=== PATIENT | male | born 1985 | race Asian ===

== ENCOUNTER 2017-04-18 09:36 | Emergency (ER) | payer MEDICAID ==
[~2017-04-18] VITALS: Ht 167.6 cm; Wt 74.7 kg
[~2017-04-18 09:36] MED LIST: D ME PO
[2017-04-18 09:39] VITALS: BP 111/71
[2017-04-18] MEDS ORDERED: IBUPROFEN 200 MG TABLET ONE (10:44)
[2017-04-18] MEDS ORDERED: IBUPROFEN 200 MG TABLET PO ONE (11:00)
== END 2017-04-18 11:22 | disposition home or self-care (01) ==
LOC: ED 11:16
DX: M77.8 Other enthesopathies, not elsewhere classified (principal)
CPT/HCPCS: 29125

== ENCOUNTER 2018-05-26 18:13 | Emergency (ER) | payer MEDICAID ==
[~2018-05-26] VITALS: Ht 167.6 cm; Wt 75.9 kg
[2018-05-26 18:21] VITALS: BP 117/79
== END 2018-05-26 19:36 | disposition home or self-care (01) ==
LOC: ED 19:30
DX: L02.811 Cutaneous abscess of head [any part, except face] (principal)
CPT/HCPCS: 99283

== ENCOUNTER 2019-09-26 15:50 | Emergency (ER) | payer MEDICAID ==
[~2019-09-26] VITALS: Ht 167.6 cm; Wt 76.8 kg
[2019-09-26 16:31] LABS: RAPID INFLUENZA A Negative (Negative); RAPID INFLUENZA B POSITIVE (Negative)
[2019-09-26 18:15] LABS: BASOPHILS # (AUTO) 0.02 x10^3/uL (0-0.1); BASOPHILS % (AUTO) 0 % (0-1); EOSINOPHILS # (AUTO) 0.05 x10^3/uL (0-0.4); EOSINOPHILS % (AUTO) 0 % (1-7); LYMPHOCYTES # (AUTO) 1.75 x10^3/uL (1-3.4); LYMPHOCYTES % (AUTO) 17 % (22-44); MD NO; MEAN CORPUSCULAR HGB CONC 32.1 g/dL (33.2-36.2); MEAN CORPUSCULAR VOLUME 78.1 fL (81-97); MONOCYTES % (AUTO) 13 % (2-9); NEUTROPHILS # (AUTO) 7.29 x10^3/uL (1.8-6.8); NEUTROPHILS % (AUTO) 70 % (42-75); PLATELET COUNT 221 x10^3/uL (130-400); RED BLOOD COUNT 5.58 x10^6/uL (4.38-5.82); RED CELL DISTRIBUTION WIDTH 13.3 % (9.4-14.8)
[2019-09-26 18:21] LABS: ALBUMIN 4.4 g/dL (3.4-5.0); ANION GAP 7 mmol/L (5-15); CALCIUM 8.7 mg/dL (8.5-10.1); CHLORIDE 102 mmol/L (98-107); CREATININE 1.14 mg/dL (0.7-1.3)
[2019-09-26] MEDS ORDERED: KETOROLAC 30 MG/1 ML ONE (18:29)
[2019-09-26] MEDS ORDERED: KETOROLAC 30 MG/1 ML IM ONE (18:30)
[2019-09-26] MEDS ORDERED: ACETAMINOPHEN 500 MG TABLET ONE (18:41)
[2019-09-26] MEDS ORDERED: SODIUM CHLORIDE FLUSH 10ML SYR IVF ONE (19:00)
[2019-09-26] MEDS ORDERED: ACETAMINOPHEN 500 MG TABLET PO ONE (19:00)
[2019-09-26] MEDS ORDERED: SODIUM CHLORIDE 0.9% 1,000ML IVBOLUS ONE (19:00)
[2019-09-26 19:32] VITALS: BP 98/59
== END 2019-09-26 19:50 | disposition home or self-care (01) ==
LOC: ED 19:25
DX: J10.1 Influenza due to other identified influenza virus with other respiratory manifestations (principal); M79.10 Myalgia, unspecified site; R42 Dizziness and giddiness; R51 Headache; E78.00 Pure hypercholesterolemia, unspecified
CPT/HCPCS: 36415; 71045; 80048; 82040; 85025; 87400; 96372; 99284; J1885; J7030

== ENCOUNTER 2019-12-11 09:45 | Emergency (ER) | payer MEDICAID ==
[~2019-12-11] VITALS: Ht 167.6 cm; Wt 77.0 kg
[2019-12-11 10:02] VITALS: BP 117/73
--- NOTE | 2019-12-11 10:14 | NUR ---
PT HERE WITH C/O NOSE PAIN, POSS. INFECTED PIMPLE. PT STATES HE TRIED TO POP IT AND GOT SOME PUSS BUT STATES THERE IS MORE IN IT.
--- NOTE | 2019-12-11 10:49 | NUR ---
Patient/Caregiver given discharge instructions and they have confirmed that they understand the instructions. Patient ambulatory with steady gait.
== END 2019-12-11 10:53 | disposition home or self-care (01) ==
LOC: ED 10:46
DX: L01.01 Non-bullous impetigo (principal)
CPT/HCPCS: 99283

== ENCOUNTER → 2020-06-27 | Outpatient (CLI) | payer MEDICAID | END | disposition home or self-care (01) | LOC: STAR 11:36 | PROVIDERS: ATTEND Anesthesiology | DX: Z20.828 Contact with and (suspected) exposure to other viral communicable diseases (principal) | CPT/HCPCS: 36415; 87635 ==

== ENCOUNTER 2020-07-02 07:44 | Day surgery (SDC) | payer MEDICAID ==
[~2020-07-02] VITALS: Ht 167.6 cm; Wt 77.7 kg
[2020-07-02] MEDS ORDERED: OXYcodone 5 MG/5 ML ORAL.SOL UDC PO PRN (08:00)
[2020-07-02] MEDS ORDERED: METOCLOPRAMIDE 5 MG/ML, 2ML IVPush PRN (08:00)
[2020-07-02] MEDS ORDERED: EPHEDRINE 50 MG/ML, 1ML IM PRN (08:00)
[2020-07-02] MEDS ORDERED: DIAZEPAM 5 MG/ML, 2ML IVPush PRN (08:00)
[2020-07-02] MEDS ORDERED: ONDANSETRON 2MG/ML, 2ML IVPush PRN (08:00)
[2020-07-02] MEDS ORDERED: EPHEDRINE 50 MG/ML, 1ML IVPush PRN (08:00)
[2020-07-02] MEDS ORDERED: METHOCARBAMOL 1,000 MG in DEXTROSE 5% 100 ML IV PRN (08:00)
[2020-07-02] MEDS ORDERED: LABETALOL 5MG/ML, 20ML IV PRN (08:00)
[2020-07-02] MEDS ORDERED: MIDAZOLAM 1 MG/ML, 2ML IV PRN (08:00)
[2020-07-02] MEDS ORDERED: KETOROLAC 30 MG/1 ML IVPush PRN (08:00)
[2020-07-02] MEDS ORDERED: HALOPERIDOL 5 MG/ML IV PRN (08:00)
[2020-07-02] MEDS ORDERED: MEPERIDINE/PF 25MG/0.5ML IVPush PRN (08:00)
[2020-07-02] MEDS ORDERED: HYDROmorphone 1 MG/ML, 1ML INJ IVPush PRN (08:00)
[2020-07-02] MEDS ORDERED: hydrALAzine 20 MG/ML, 1ML IV PRN (08:00)
[2020-07-02] MEDS ORDERED: ALBUTEROL/IPRATROPIUM 2.5MG/0.5MG, 3 ML NPPB PRN (08:00)
[2020-07-02] MEDS ORDERED: LORazepam 2 MG/ML, 1ML IVPush PRN (08:00)
[2020-07-02] MEDS ORDERED: HYDROcodone/APAP 7.5-325MG/15ML UDC PO PRN (08:00)
[2020-07-02] MEDS ORDERED: ACETAMINOPHEN 325 MG TABLET PO PRN (08:00)
[2020-07-02] MEDS ORDERED: DIPHENHYDRAMINE 50 MG/ML, 1ML IVPush PRN (08:00)
[2020-07-02] MEDS ORDERED: FENTANYL PF 100 MCG/2ML IV PRN (08:00)
[2020-07-02] MEDS ORDERED: FENTANYL PF 100 MCG/2ML ONE ×2 (08:09→08:10)
[2020-07-02] MEDS ORDERED: ROCURONIUM 10MG/ML,5ML ONE (08:09)
[2020-07-02] MEDS ORDERED: LIDOCAINE-MPF 2% ,5ML ONE (08:09)
[2020-07-02] MEDS ORDERED: PROPOFOL 10 MG/ML, 20ML ONE (08:09)
[2020-07-02] MEDS ORDERED: GLYCOPYRROLATE 0.2MG/1ML, 5ML ONE (08:09)
[2020-07-02] MEDS ORDERED: DEXAMETHASONE 4 MG/ML, 1ML ONE (08:09)
[2020-07-02] MEDS ORDERED: MIDAZOLAM 1 MG/ML, 2ML ONE (08:09)
[2020-07-02] MEDS ORDERED: LACTATED RINGERS 1,000 ML IV SCH (08:42)
[2020-07-02] MEDS ORDERED: NONE PER PT (08:48)
[2020-07-02 08:53] VITALS: BP 119/80
[2020-07-02] MEDS ORDERED: CHLORHEXIDINE 15 ML UDC MM ONE (09:00)
[2020-07-02] MEDS ORDERED: CEFAZOLIN 1,000 MG ONE (13:41)
== END 2020-07-02 17:50 | disposition home or self-care (01) ==
LOC: OUT 07:44
PROVIDERS: ATTEND Urology
DX: N20.0 Calculus of kidney (principal); N50.89 Other specified disorders of the male genital organs
CPT/HCPCS: 50590; 74018; J0690; J1100; J2250; J2405; J2704; J3010; J7120

== ENCOUNTER 2021-06-22 10:19 | Outpatient (CLI) | payer MEDICAID ==
[~2021-06-22 10:19] MED LIST changes: +NONE PER PT
== END 2021-06-22 23:59 | disposition home or self-care (01) ==
LOC: STAR 10:19
PROVIDERS: ATTEND Urology
DX: Z02.9 Encounter for administrative examinations, unspecified (principal)

== ENCOUNTER 2021-06-26 09:59 | Day surgery (SDC) | payer MEDICAID ==
[~2021-06-26] VITALS: Ht 167.6 cm; Wt 78.4 kg
[2021-06-26 10:20] VITALS: BP 119/80
[2021-06-26] MEDS ORDERED: NO HOME MEDS PER PT (10:20)
[2021-06-26] MEDS ORDERED: CHLORHEXIDINE 15 ML UDC PO ONE (10:30)
[2021-06-26] MEDS ORDERED: LACTATED RINGERS 1,000 ML IV SCH (10:30)
[2021-06-26] MEDS ORDERED: FENTANYL PF 100 MCG/2ML ONE (11:52)
[2021-06-26] MEDS ORDERED: MIDAZOLAM 1 MG/ML, 2ML ONE (11:52)
[2021-06-26] MEDS ORDERED: OMNIPAQUE 350 MG/ML, 50 ML BOTTLE ONE (12:32)
[2021-06-26] MEDS ORDERED: HYDROmorphone 1 MG/ML, 1ML INJ IVPush PRN (14:00)
[2021-06-26] MEDS ORDERED: LORazepam 2 MG/ML, 1ML IVPush PRN (14:00)
[2021-06-26] MEDS ORDERED: FENTANYL PF 100 MCG/2ML IV PRN (14:00)
[2021-06-26] MEDS ORDERED: MEPERIDINE/PF 25MG/0.5ML IVPush PRN (14:00)
[2021-06-26] MEDS ORDERED: ACETAMINOPHEN 325 MG TABLET PO PRN (14:00)
[2021-06-26] MEDS ORDERED: METHOCARBAMOL 1,000 MG in DEXTROSE 5% 100 ML IV PRN (14:00)
[2021-06-26] MEDS ORDERED: OXYcodone 5 MG/5 ML ORAL.SOL UDC PO PRN (14:00)
[2021-06-26] MEDS ORDERED: ONDANSETRON 2MG/ML, 2ML IVPush PRN (14:00)
[2021-06-26] MEDS ORDERED: HALOPERIDOL 5 MG/ML IV PRN (14:00)
[2021-06-26] MEDS ORDERED: PROMETHAZINE 25 MG SUPP PR PRN (14:00)
[2021-06-26] MEDS ORDERED: PROMETHAZINE 25 MG/ML, 1ML IVPush PRN (14:00)
[2021-06-26] MEDS ORDERED: CEFAZOLIN 1,000 MG ONE (14:08)
[2021-06-26] MEDS ORDERED: PROPOFOL 10 MG/ML, 20ML ONE (14:08)
[2021-06-26] MEDS ORDERED: ONDANSETRON 2MG/ML, 2ML ONE (14:08)
[2021-06-26] MEDS ORDERED: DEXAMETHASONE 4 MG/ML, 1ML ONE (14:08)
== END 2021-06-26 17:00 | disposition home or self-care (01) ==
LOC: OR 09:59
PROVIDERS: ATTEND Urology
DX: N13.2 Hydronephrosis with renal and ureteral calculous obstruction (principal); L72.3 Sebaceous cyst; E78.5 Hyperlipidemia, unspecified; Z87.442 Personal history of urinary calculi; Z98.890 Other specified postprocedural states
CPT/HCPCS: 52356; 74420; 82360; 88300; C1726; C1769; C2617; J0690; J1100; J2250; J2405; J2704; J3010; J7120; Q9967